=== PATIENT | male | born 1985 | race African-American/Black ===

== ENCOUNTER 2017-08-12 15:51 | Emergency (ER) | payer MEDICAID, MEDICARE ==
[~2017-08-12] VITALS: Ht 185.4 cm; Wt 84.0 kg
[2017-08-12 15:56] VITALS: BP 126/81
== END 2017-08-12 19:20 | disposition left against medical advice (07) ==
LOC: ER 18:25
DX: Z53.21 Procedure and treatment not carried out due to patient leaving prior to being seen by health care provider (principal)